=== PATIENT | female | born 1970 | race Caucasian/White ===

== ENCOUNTER 2021-11-27 14:59 | Emergency (ER) | payer OTHER ==
[2021-11-27 15:16] VITALS: BP 105/73; PULSE 88; RESP 19; TEMP 98.6; BMI 31.1
[2021-11-27] MEDS ORDERED: KETOROLAC TROMETHAMINE 30 MG/1 ML VIAL IM ONE (15:39)
[2021-11-27] MEDS ORDERED: KETOROLAC TROMETHAMINE 30 MG/1 ML VIAL ONE (15:41)
== END 2021-11-27 17:32 | disposition home or self-care (01) ==
LOC: JERFT 14:59
PROC: 3E0233Z Introduction of Anti-inflammatory into Muscle, Percutaneous Approach (ICD-10-PCS; principal; 2021-11-27)
DX: M25.561 Pain in right knee (principal)
CPT/HCPCS: 73562-TC-RT-FY; 99284-25